=== PATIENT | female | born 1990 | race Caucasian/White ===

== ENCOUNTER 2020-01-03 18:09 | Emergency (ER) | payer MEDICAID ==
[~2020-01-03] VITALS: Ht 160 cm; Wt 73.7 kg
[2020-01-03 18:14] VITALS: BP 104/55; TEMP 99.1
[2020-01-03 19:04] LABS: STREP SCREEN NEGATIVE
[2020-01-03 19:05] LABS: BASO % 0.6 % (0.0-2.0); EOS # 0.1 (0.0-0.7); EOS % 2.2 % (0-4.0); GRAN # 4.3 (1.4-6.5); GRAN % 68.2 % (42.2-75.2); LYMPH # 1.2 (1.2-3.4); LYMPH % 19.1 % (20.0-51.0); MEAN CELL VOLUME 94 fl (80.0-100.0); MEAN CORPUSCULAR HGB CONC 33 g/dl (33.0-37.0); MEAN PLATELET VOLUME 10.4 fl (7.4-10.4); MONO # 0.6 (0.1-0.6); PLATELET COUNT 193 K/mm3 (130-400); RED BLOOD COUNT 3.23 M/mm3 (4.10-5.30); REDCELL DISTRIBUTION WIDTH-CV 13.6 % (11.5-14.5)
[2020-01-03 19:07] LABS: HEMATOCRIT 30.2 % (37.0-47.0); HEMOGLOBIN 9.8 g/dl (12.5-16.0); MEAN CORPUSCULAR HEMOGLOBIN 30 pg (27.0-31.0)
[2020-01-03 19:10] LABS: ALBUMIN 3.4 gm/dL (3.5-5.0); BILIRUBIN,TOTAL 0.6 mg/dL (0.0-1.0); CALCIUM 8.2 mg/dL (8.4-10.2); CREATININE, serum 0.42 (0.52-1.25); POTASSIUM 3.7 mmol/L (3.4-5.0); TOTAL PROTEIN 6.3 gm/dL (6.4-8.2)
[2020-01-03] MEDS ORDERED: TAMIFLU 75MG75 MG PO (19:42)
[2020-01-03 20:28] VITALS: PULSE 120
== END 2020-01-03 20:28 | disposition home or self-care (01) ==
LOC: COL.ER 18:09
PROVIDERS: Nurse Practitioner
DX: J10.1 Influenza due to other identified influenza virus with other respiratory manifestations (principal)
CPT/HCPCS: J7030

== ENCOUNTER 2020-01-23 15:13 | Outpatient (CLI) | payer MEDICAID ==
[~2020-01-23] VITALS: Ht 160 cm; Wt 73.2 kg
--- NOTE | 2020-01-23 15:10 | NUR ---
Pt arrives via wheelchair from ED. States ctx since 1000. LOF at 1445. States intercourse this am. Changed into a clean gown. EFM and toco applied. VSS. Amniotest negative. SVE per this RN closed/50. Admission assessment completed. Dr. Herring notified. See physician notification. Pt updated on POC. Safety reviewed. Bed locked in low position. Call light wihin reach. No questions or concerns at this time.
[~2020-01-23 15:13] MED LIST: TAMIFLU 75MG75 MG PO
[2020-01-23 15:52] LABS: COLLECTION METHOD CLEAN CATCH
[2020-01-23 16:03] LABS: PH 7 (5-8); SQUAMOUS EPITHELIAL 0-2 /hpf; URINE APPEARANCE Clear; URINE BACTERIA None Seen /hpf; URINE BILIRUBIN Negative (NEGATIVE); URINE BLOOD Negative (NEGATIVE); URINE COLOR Straw; URINE GLUCOSE Negative (NEGATIVE); URINE KETONE Negative (NEGATIVE); URINE LEUKOCYTE ESTERASE Negative (NEGATIVE); URINE NITRATE Negative (NEGATIVE); URINE PROTEIN(semi-quant) Negative (NEGATIVE); URINE RBC 0-2 /hpf; URINE UROBILINOGEN Negative (NEGATIVE); URINE WBC None Seen /hpf
[2020-01-23 16:15] VITALS: BP 107/63; PULSE 93; TEMP 98
== END 2020-01-23 16:15 | disposition home or self-care (01) ==
LOC: LDRO 15:13 → LDR 15:25 → LDRO 16:15
PROVIDERS: Obstetrics & Gynecology
DX: O62.9 Abnormality of forces of labor, unspecified (principal); Z3A.25 25 weeks gestation of pregnancy
CPT/HCPCS: OP

== ENCOUNTER → 2020-03-29 | Outpatient (CLI) | payer MEDICAID ==
[~2020-03-29] VITALS: Ht 160 cm; Wt 75.5 kg
[~2020-03-29] MED LIST changes: +CEPHALEXIN500 M1 PO; +PRENATAL; +ZOLOFT 25MG25 MG PO; +ZOLOFT 50MG50 MG PO
--- NOTE | 2020-03-29 12:35 | NUR ---
PATIENT HERE FROM EMERGENCY ROOM. IN BED. PATIENT COMPLAINS OF LABIAL PAIN AND SWELLING. DR ESTRADA NOTIIED AND ON HIS WAY. 1320 LABIAL CYST DRAINED BY DR ESTRADA AT THIS TIME. LIDOCAINE WITH EPI USED.
[2020-03-29 12:44] VITALS: BP 116/78; PULSE 98; TEMP 498.6
[2020-03-29 13:00] VITALS: BP 116/78; PULSE 98; TEMP 98.6
[2020-03-29 13:30] VITALS: BP 124/72; PULSE 111
[2020-03-29 13:50] VITALS: BP 96/51; PULSE 112
== END ==
LOC: COL.ER 11:51 → EDSTATUS 14:01 → LDRO 14:04
DX: O26.893 Other specified pregnancy related conditions, third trimester (principal); N90.7 Vulvar cyst; Z3A.35 35 weeks gestation of pregnancy

== ENCOUNTER 2020-03-31 11:50 | Outpatient (CLI) | payer MEDICAID ==
[~2020-03-31] VITALS: Ht 160 cm; Wt 75.0 kg
--- NOTE | 2020-03-31 11:40 | NUR ---
1140- Pt arrives on unit ambulatory with complaints of vaginal bleeding that started at 1125 today. Pt states she noticed it on her underwear and then on toilet paper after wiping. Pt denies LOF or UCs. Pt states she has not noticed movement since 0900 today. Pt into bathroom, changes into gown. 1145- PT into bed, EFM and TOCO on and tracing. Pt states she had cyst drained here at the hospital this weekend. Denies and drainage prior to now. Is taking antibiotics as prescribed. 1150- SVE by this RN, cervix closed and firm. Small amount of pink blood noted on labias and inner thighs. 1/2 cm incision site where cyst drained is well approximated, no redness noted. With slight pressure around site, small amount of pink drainage noted. 1200- Dr Germain at nurses station. Updated on Pt and findings. reviews strip from nurses station. VORB: Drainage from incision site is normal. Pt may be discharged home after reactive strip achieved.
[~2020-03-31 11:50] MED LIST changes: -CEPHALEXIN500 M1 PO; -ZOLOFT 50MG50 MG PO
[2020-03-31 11:58] VITALS: BP 119/64; PULSE 88; TEMP 97.9
[2020-03-31] MEDS ORDERED: ZOLOFT 50MG50 MG PO (12:03)
[2020-03-31] MEDS ORDERED: CEPHALEXIN500 M1 PO (12:04)
--- NOTE | 2020-03-31 12:40 | NUR ---
1232- EFM and TOCO off. Pt up to bathroom to change into street clothes. 1235- Discharge paperwork given and explained. Labor precautions given. Pt encouraged to use peripads and change frequently due to drainage. Pt denies questions. 1240- Pt ambulates off unit independently with FOB in stable condition.
== END 2020-03-31 12:40 | disposition home or self-care (01) ==
LOC: LDRO 11:50 → LDR 11:51 → LDRO 12:40 → LDR 04-01 14:54
DX: O46.93 Antepartum hemorrhage, unspecified, third trimester (principal); Z3A.35 35 weeks gestation of pregnancy
CPT/HCPCS: OP

== ENCOUNTER 2020-04-29 06:57 | Inpatient (IN) | payer MEDICAID ==
[~2020-04-29] VITALS: Ht 160 cm; Wt 78.6 kg
[2020-04-29] VITALS (62 sets, daily range): BP systolic 89–127; BP diastolic 51–71; PULSE 75–124; TEMP 97.6–98.4
[~2020-04-29 06:57] MED LIST changes: +CEPHALEXIN500 M1 PO; +ZOLOFT 50MG50 MG PO
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
[2020-04-29] MEDS ORDERED: TUMS500 MG (07:46)
[2020-04-29 07:52] LABS: BASO # 0.1 (0.0-0.2); BASO % 0.6 % (0.0-2.0); EOS # 0.1 (0.0-0.7); EOS % 1.1 % (0-4.0); GRAN # 5.4 (1.4-6.5); GRAN % 54.2 % (42.2-75.2); HEMOGLOBIN 10.9 g/dl (12.5-16.0); LYMPH # 3.7 (1.2-3.4); LYMPH % 36.7 % (20.0-51.0); MEAN CELL VOLUME 88 fl (80.0-100.0); MEAN CORPUSCULAR HEMOGLOBIN 29 pg (27.0-31.0); MEAN CORPUSCULAR HGB CONC 32 g/dl (33.0-37.0); MEAN PLATELET VOLUME 11.2 fl (7.4-10.4); MONO # 0.7 (0.1-0.6); MONO % 6.7 % (1.7-9.3); PLATELET COUNT 259 K/mm3 (130-400); RED BLOOD COUNT 3.83 M/mm3 (4.10-5.30); REDCELL DISTRIBUTION WIDTH-CV 14.3 % (11.5-14.5)
[2020-04-29 07:56] LABS: HEMATOCRIT 33.6 % (37.0-47.0)
--- NOTE | 2020-04-29 08:40 | NUR ---
FHR baseline 135 bpm. Intermittently tracing maternal heart rate due to patient on birthing ball. 0910: Dr. Herring at bedside and SONO done at this time. Vertex position confirmed. SVE per physician 1-/-3. 0920: Patient back on birthing ball and FHR monitor tracing maternal heart rate due patient position. 1116: FHR intermittenly tracing maternal heart rate.
--- NOTE | 2020-04-29 13:25 | NUR ---
Dr. Herring at bedside assessing patient and FHR strip. 1328: SVE per physician /-3 and AROM at this time with clear fluid noted. No new orders at this time.
--- NOTE | 2020-04-29 14:30 | NUR ---
FHR monitor intermittently tracing maternal heart rate due to patient leaning over bed. Monitor adjusted. Patient states contractions are "getting stronger and more uncomfortable". Patient has no needs at this time.
--- NOTE | 2020-04-29 14:45 | NUR ---
CARE OF THE PT ASSUMED AT THIS TIME. BEDSIDE REPORT RECEIVED FROM KAITLIN CAMARGO RN.
--- NOTE | 2020-04-29 15:15 | NUR ---
PT SITTING UP FOR EPIDURAL. Remington FLOREZ CRNA, IN FOR EPIDURAL PLACEMENT AT 1512. DR ANDREWS STEPS IN TO CHECK ON PT AT 1517-TO CALL HIM WITH UPDATE AFTER PLACEMENT OF EPIDURAL. SINGLE SHOT AT 1520, EPIDURAL CATHETER PLACED AT 1522, TEST DOSE AT 1523 WITH NO ABNORMAL SYMPTOMS REPORTED BY PT.
--- NOTE | 2020-04-29 16:30 | NUR ---
PT REPORTS SHE IS NOT HAVING MUCH PAIN ANY LONGER BUT IS STILL FEELING SOME PAIN IN HER RIGHT LEG. REPOSITIONED WEDGE RIGHT WITH PEANUT BALL.
--- NOTE | 2020-04-29 17:00 | NUR ---
PT REPORTS SHE IS FEELING SOME PRESSURE. SVE /-2. FHT'S REASSURING WITH MODERATE VARIABILITY AND ACCELS.
--- NOTE | 2020-04-29 17:45 | NUR ---
DR ANDREWS UPDATED ON PT'S SVE. ASKED TO BE CALLED WITH NEXT CERVICAL CHECK INFORMATION. PT RESTING IN BED. REQUESTING A POPSICLE AND JELLO.
--- NOTE | 2020-04-29 18:00 | NUR ---
PT REPORTING HEARTBURN-TWO TUMS GIVEN.
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
--- NOTE | 2020-04-29 18:30 | NUR ---
1829- ALL CLEAR CALLED AND PT HEADED BACK TO ROOM 1831- MONITORS APPLIED AND PT ASSISTED WITH COMFORT. 1834- PITOCIN RESTARTED AT 15. 1844- SVE BY THIS NURSE 1849- DR ANDREWS NOTIFIED CHARTED 1899- PT ASSISTED TO RIGHT TILT AND MONITORS ADJUSTED. 1944- SVE BY THIS NURSE UNCHANGED, BLOODY SHOW HAS INCREASED THOUGH. PITOCIN INCREASED TO 17. 2009- PITOCIN INCREASED TO 19. 2024- PT CALLS OUT WITH INCREASING PRESSURE. SVE BY THIS NURSE .
--- NOTE | 2020-04-29 20:32 | NUR ---
2031- DR ANDREWS CALLED AND UPDATED CHARTED. 2054- SVE BY THIS NURSE . PT COMPLAINS OF CONTINUED NAUSEA 2104- ZOFRAN AND TUMS GIVEN CHARTED. 2144- SVE BY THIS NURSE NO CHANGE, PITOCIN INCREASED TO 20. 2154- DR ANDREWS CALLS AND IS UPDATED CHARTED. 2219- PT TURNS TO MORE UPRIGHT POSITION FOR HER COMFORT. 2244- SVE BY THIS NURSE .
--- NOTE | 2020-04-29 23:00 | NUR ---
2300- PT COMPLAINS OF INCREASED PRESSURE, SVE BY THIS NURSE NO CHANGE. 2339- DR ANDREWS CALLED AND IS UPDATED BY ANOTHER STAFF NURSE. 2344- SVE BY THIS NURSE .
[2020-04-30] VITALS (14 sets, daily range): BP systolic 86–137; BP diastolic 46–70; PULSE 59–129; TEMP 97.5–98.4
--- NOTE | 2020-04-30 00:12 | NUR ---
0012- DR ANDREWS CALLED CHARTED, HEADING TO HOSPITAL 0025- DR ANDREWS HERE, REVIEWS STRIP AT DESK AND THEN TO BEDSIDE. 0027- SVE BY THIS NURSE /+2 0030- DR ANDREWS HAS PT PRACTICE PUSH WITH CONTRACTIONS, COMPLETE AND READY FOR DELIVERY. 0033- SPONTANEOUS VAGINAL DELIVERY OF VIABLE FEMALE, VIGOROUS, TO MOTHER'S ABDOMEN AND CARE OF NURSERY STAFF. 0039- SPONTANEOUS DELIVERY OF PLACENTA, EXAMINED BY DR ANDREWS, NO REPAIR. 0045- PERICARE, ICEPACK TO PERINEUM. FEET DOWN FROM FOOTPLATES AND POSTPARUM RECOVERY STARTED.
--- NOTE | 2020-04-30 02:45 | NUR ---
0245- IV TO SALINE LOCK, EPIDURAL CATHETER REMOVED CHARTED. PT ASSISTED TO AMBULATE TO BATHROOM. ABLE TO VOID 400ML WITHOUT DIFFICULTY. PT PERFORMS PERICARE, CLEAN GOWN, PAD, AND PANTIES PROVIDED. NORMAL LOCHIA DISCUSSED. 0300- PT AMBULATES TO ROOM 214. BELONGINGS SENT WITH PT. PT ORIENTED TO ROOM AND CALL LIGHTS. PLAN OF CARE DISCUSSED AND QUESTIONS ANSWERED. PT DENIES FURTHER NEEDS AT THIS TIME.
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
[2020-05-01 06:48] LABS: HEMATOCRIT 31.6 % (37.0-47.0); HEMOGLOBIN 9.8 g/dl (12.5-16.0)
[2020-05-01 07:00] VITALS: BP 112/73; PULSE 66; TEMP 97.5
[2020-05-01] MEDS ORDERED: PERCOCET 325 MG1 TA2 PO (08:30)
[2020-05-01] MEDS ORDERED: ZOLOFT 50MG50 MG PO (08:30)
[2020-05-01] MEDS ORDERED: IBU600 MG PO (08:30)
== END 2020-05-01 10:05 | disposition home or self-care (01) | DRG 807 ==
LOC: LDR 06:57 → OB 06:57 → LDR 08:30 → OB 04-30 03:00
PROVIDERS: ADMIT Obstetrics & Gynecology
PROC: 10E0XZZ Delivery of Products of Conception, External Approach (ICD-10-PCS; principal; 2020-04-30)
PROC: 10907ZC Drainage of Amniotic Fluid, Therapeutic from Products of Conception, Via Natural or Artificial Opening (ICD-10-PCS; 2020-04-30)
PROC: 3E033VJ Introduction of Other Hormone into Peripheral Vein, Percutaneous Approach (ICD-10-PCS; 2020-04-30)
DX: O99.02 Anemia complicating childbirth (principal); Z37.0 Single live birth; O99.344 Other mental disorders complicating childbirth; F32.9 Major depressive disorder, single episode, unspecified; D64.9 Anemia, unspecified; Z3A.39 39 weeks gestation of pregnancy; O26.893 Other specified pregnancy related conditions, third trimester; Z67.41 Type O blood, Rh negative
CPT/HCPCS: J2405; J2590; J2795; J7120